=== PATIENT | male | born 1950 | race Caucasian/White ===

== ENCOUNTER 2017-07-01 12:35 | Emergency (ER) | payer MEDICARE, SELFPAY ==
[~2017-07-01 12:35] MED LIST: Iopamidol 370 76% 100 ML VIAL ONE
[2017-07-01 13:23] LABS: #Basophils 0.1 thou/uL (0.0-0.2); #Eosinphils 0.1 thou/uL (0.0-0.7); #Monocytes 0.8 thou/uL (0.11-0.59); #Neutrophils 4.8 thou/uL (1.40-6.50); %Basophils 1.9 % (0.0-1.0); %Eosinophils 1.6 % (0.0-10.0); %Lymphocytes 25.9 % (21.0-51.0); %Monocytes 9.7 % (0.0-10.0); %Neutrophils 60.9 % (42.0-75.0); Mean Corpuscular HGB CONC 33.8 g/dL (32.0-36.0); Mean Corpuscular Hemoglobin 33.7 pg (27.0-31.0); Mean Corpuscular Volume 99.8 fl (80.0-94.0); Mean Platelet Volume 5.2 fL (7.4-10.4); Platelet Count 346 thou/uL (130-400); RBC Distribution Width 11.2 % (11.5-14.5); Red Blood Cell (RBC) Count 4.74 mill/uL (4.70-6.10); White Blood Cell (WBC) Count 7.8 thou/uL (4.8-10.8)
[2017-07-01 13:31] LABS: PTT 28.6 SEC (22.9-36.1); Prothrombin Time 13.1 SEC (12.0-14.7)
[2017-07-01 13:34] LABS: ALT (SGPT) 22 U/L (8-55); AST (SGOT) 23 U/L (5-34); Albumin 4.4 g/dL (3.4-4.8); Alkaline Phosphatase 70 U/L (40-150); Anion Gap 15 mmol/L (10-20); BUN (Urea Nitrogen) 13 mg/dL (8.4-25.7); Bilirubin, Total 0.4 mg/dL (0.2-1.2); Calc. Creatinine Clearance 0 mL/min (70-130); Carbon Dioxide 25 mmol/L (23-31); Chloride 102 mmol/L (98-107); Estimated GFR-MDRD Greater than 90; Globulin 3.2 g/dL (2.4-3.5); Glucose 81 mg/dL (80-115); Potassium 4.2 mmol/L (3.5-5.1); Protein, Total 7.6 g/dL (5.8-8.1); Sodium 138 mmol/L (136-145)
--- NOTE | 2017-07-01 14:30 | CT ---
CT ANGIO CHEST PERFORMED WITH INTRAVENOUS CONTRAST ENHANCEMENT WITH 3D RECONSTRUCTIONS: HISTORY: Hemoptysis. FINDINGS: The lungs are clear of any confluent infiltrative process. There is some minimal ground glass opaci ty within the right upper lobe, which could indicate early pneumonitis. There is no significant med iastinal or hilar lymphadenopathy. The thoracic aorta is normal in caliber. There is fair pulmonary arterial opacification. Small per ipheral emboli cannot be excluded, but I see no evidence for any central embolus. The visualized li beverly parenchyma shows no focal findings. IMPRESSION: 1. Minimal ground glass opacity in the right upper lobe. The possibility of an early pneumonitis s hould be considered. 2. No CT evidence for pulmonary embolus. POS: OFF
== END 2017-07-01 14:48 | disposition home or self-care (01) ==
LOC: NAV ERS 12:35
DX: J18.9 Pneumonia, unspecified organism (principal); R04.2 Hemoptysis; M19.90 Unspecified osteoarthritis, unspecified site; F17.210 Nicotine dependence, cigarettes, uncomplicated; Z79.1 Long term (current) use of non-steroidal anti-inflammatories (NSAID)
CPT/HCPCS: 36415; 71275; 80053; 85025; 85610; 85730

== ENCOUNTER 2018-07-25 10:51 | Emergency (ER) | payer MEDICARE ==
[2018-07-25] MEDS ORDERED: Adacel (T-DAP) 0.5 ML VIAL ONE (11:31)
--- NOTE | 2018-07-25 12:48 | CT ---
CT HEAD WITHOUT CONTRAST: Multiple axial tomograms are obtained through the head without IV enhancement. INDICATION: Head injury. Ventricles have normal size and position. Mild to moderate chronic ischemic white matter changes. N o evidence of mass or hemorrhage. No evidence of acute infarct. There is mucosal edema in the floor of the left maxillary antrum. IMPRESSION: Chronic ischemic white matter change. No acute intracranial abnormality identified. Deep lacunar in farcts cannot be excluded given the degree of chronic ischemic change. POS: [facility]
--- NOTE | 2018-07-25 12:59 | CT ---
CT CERVICAL SPINE: Date: 07-25-18 Comparison: None. History: Head injury, trauma. Technique: Serial axial CT imaging is obtained at 2.5 mm intervals from skull base through lung apice s with coronal and sagittal reformatted imaging. FINDINGS: Subpleural emphysematous changes are noted within the right lung apex. There is atherosclerotic calcification of the cavernous carotid arteries and the distal right vertebr al artery. There is mucosal thickening involving the alveolar recess of the left maxillary sinus. There are a fe w opacified mastoid air cells on the left. The C1 ring is intact. There is moderate degenerative change at the atlantoaxial interspace. The cran iocervical junction and cervicothoracic junction demonstrate no acute findings. No significant dionicio listhesis or retrolisthesis. No prevertebral soft tissue swelling. The dens, occipital condyles, and C1-2 articulation appear grossly unremarkable. C2-3: There is significant left neural foraminal stenosis on the basis of facet and uncal vertebral o steophyte formation. There is prominent facet hypertrophy on the left at C4-5 with associated left ne ural foraminal stenosis. Bilateral uncal vertebral osteophyte formation at C5-6 and C6-7. Disc space narrowing and anterior osteophyte formation at C5-6 and C6-7. No displaced fracture or evidence of di slocation. IMPRESSION: 1. Prominent multilevel degenerative change noted within the cervical spine. No acute fracture or dis location noted. POS: [facility] [place]
== END 2018-07-25 12:00 | disposition home or self-care (01) ==
LOC: NAV ERS 10:51
DX: S01.01XA Laceration without foreign body of scalp, initial encounter (principal); Z87.891 Personal history of nicotine dependence; W11.XXXA Fall on and from ladder, initial encounter
CPT/HCPCS: 12002; 70450; 72125; 90471; 90715

== ENCOUNTER 2018-08-02 11:35 | Emergency (ER) | payer MEDICARE | END 2018-08-02 11:52 | disposition home or self-care (01) | LOC: NAV ERS 11:35 | DX: S01.01XD Laceration without foreign body of scalp, subsequent encounter (principal); F17.210 Nicotine dependence, cigarettes, uncomplicated; Z79.899 Other long term (current) drug therapy ==

== ENCOUNTER 2018-08-25 12:38 | Emergency (ER) | payer MEDICARE | END 2018-08-25 13:40 | disposition home or self-care (01) | LOC: NAV ERS 12:38 | DX: S51.012A Laceration without foreign body of left elbow, initial encounter (principal); F17.210 Nicotine dependence, cigarettes, uncomplicated; M19.90 Unspecified osteoarthritis, unspecified site; Z79.1 Long term (current) use of non-steroidal anti-inflammatories (NSAID); Z79.899 Other long term (current) drug therapy; W19.XXXA Unspecified fall, initial encounter | CPT/HCPCS: 12001 ==

== ENCOUNTER 2019-08-09 10:50 | Emergency (ER) | payer OTHER, MEDICARE ==
[~2019-08-09 10:50] MED LIST changes: +Dextrose 50% Abboject 50 ML SYRINGE ONE; +EPINEPHrine 1 MG/10 ML Abboject SYRINGE ONE; -Iopamidol 370 76% 100 ML VIAL ONE; +Sodium Chloride 0.9% 1,000 ML BAG ONE
--- NOTE | 2019-08-09 11:23 | RAD ---
CHEST ONE VIEW: HISTORY: Traumatic code. COMPARISON: None. FINDINGS: Limited evaluation due to overlying structures. Atherosclerosis of the aorta. There are diffuse inter stitial and alveolar opacities. Pneumothorax cannot be assessed on this exam due to supine position. No obvious osseous abnormalities. IMPRESSION: Limited evaluation due to supine position and overlying structures. There does appear to be diffuse i nterstitial and alveolar opacities due to edema, volume overload, aspiration or pneumonia. Continued surveillance recommended. Transcribed Date/Time: 08/09/2019 11:37 AM
[2019-08-09] MEDS ORDERED: EPINEPHrine 1 MG/ML AMP ONE (11:27)
--- NOTE | 2019-08-09 11:28 | RAD ---
Exam: One view pelvis HISTORY: Trauma. Pain FINDINGS: Minimally displaced medial right superior pubic ramus fracture. Remainder the bony pelvis appears to be intact. Sacral ala appear to be preserved Symmetric sacroiliac joints and hip joints. Contour of both femoral heads are maintained. No fracture IMPRESSION: Fracture involving the medial right superior pubic ramus.
[2019-08-09 11:36] LABS: Hemoglobin 14.7 g/dL (14.0-18.0); Mean Corpuscular HGB CONC 31.1 g/dL (32.0-36.0); Mean Corpuscular Hemoglobin 34.9 pg (27.0-31.0); Mean Platelet Volume 5.4 fL (7.4-10.4); Platelet Count 55 thou/uL (130-400); RBC Distribution Width 13.5 % (11.5-14.5); Red Blood Cell (RBC) Count 4.22 mill/uL (4.70-6.10); White Blood Cell (WBC) Count 5.6 thou/uL (4.8-10.8)
[2019-08-09 11:51] LABS: Band 6 % (5-11); Eosinophils 2 % (0-10); Lymphocytes 40 % (21-51); MDiff Complete? YES; Macrocytosis SLIGHT = 6-15 cells (100X) (0-5/hpf); Monocytes 3 % (0-10); Neutrophil 49 % (42-75); Nucleated RBC 3 % (0); Platelet Morphology Comment Appears Decreased
[2019-08-09 11:54] LABS: ALT (SGPT) 71 U/L (8-55); AST (SGOT) 159 U/L (5-34); Albumin 1.9 g/dL (3.4-4.8); Alkaline Phosphatase 84 U/L (40-110); Anion Gap 22 mmol/L (10-20); BUN (Urea Nitrogen) Less than 4 mg/dL (8.4-25.7); Bilirubin, Total 0.3 mg/dL (0.2-1.2); Calc. Creatinine Clearance 0 mL/min (70-130); Calcium 7.1 mg/dL (7.8-10.44); Carbon Dioxide 17 mmol/L (23-31); Chloride 100 mmol/L (98-107); Estimated GFR-MDRD 76; Globulin 1.9 g/dL (2.4-3.5); Potassium 3.5 mmol/L (3.5-5.1); Protein, Total 3.8 g/dL (5.8-8.1); Sodium 135 mmol/L (136-145)
[2019-08-09 12:07] LABS: Glucose 642 mg/dL (80-115)
[2019-08-09 12:08] LABS: Troponin I 1.428 ng/mL (< 0.028)
== END 2019-08-09 11:27 | disposition expired ==
LOC: NAV ERS 10:50
DX: I46.9 Cardiac arrest, cause unspecified (principal); S32.591A Other specified fracture of right pubis, initial encounter for closed fracture; E16.2 Hypoglycemia, unspecified; J44.9 Chronic obstructive pulmonary disease, unspecified; F17.210 Nicotine dependence, cigarettes, uncomplicated; V59.9XXA Occupant (driver) (passenger) of pick-up truck or van injured in unspecified traffic accident, initial encounter
CPT/HCPCS: 31500; 36415; 36680; 71045; 72170; 80053; 84484; 85025; 92950; 96374; 96375; J0171; J7050